=== PATIENT | male | born 1955 | race Caucasian/White ===

== ENCOUNTER 2018-10-25 23:40 | Emergency (ER) | payer BC ==
[~2018-10-25 23:40] MED LIST: Aspirin 81 MG Tab.Chew PO ONE; Sodium Chloride 0.9% 1,000 ML IV SCH
[2018-10-25] MEDS: Nitroglycerin 0.4 MG Tab.SL SL PRN ×2 (23:41→23:45)
[2018-10-26] MEDS ORDERED: Morphine 2 MG/ML Syringe IVPUSH ONE
[2018-10-26] MEDS: Nitroglycerin 0.4 MG Tab.SL SL PRN (00:12)
[2018-10-26] MEDS ORDERED: Morphine 2 MG/ML Syringe ONE (00:42)
[2018-10-26] MEDS ORDERED: Nitroglycerin/D5W 25 MG/250 ML BOTTLE IV SCH (00:49)
--- NOTE | 2018-10-26 01:45 | EDM.PDOC ---
ED HPI GENERAL MEDICAL PROBLEM - General Chief Complaint: Chest Pain Stated Complaint: CHEST PAIN Time Seen by Provider: 10/25/18 23:45 Source of Information: Reports: Patient History Limitations: Reports: No Limitations - History of Present Illness INITIAL COMMENTS - FREE TEXT/NARRATIVE: dictated - Related Data Allergies Allergy/AdvReac Type Severity Reaction Status Date / Time No Known Allergies Allergy Verified 10/26/18 00:57 Home Meds: Home Meds NK [No Known Home Meds] 10/26/18 [History] Past Medical History HEENT History: Reports: Sinusitis, Other (See Below) Other HEENT History: inflammation neck/node Musculoskeletal History: Reports: Other (See Below) Other Musculoskeletal History: torn bicep - Infectious Disease History Infectious Disease History: Reports: Chicken Pox, Mumps ED ROS GENERAL - Review of Systems Constitutional: Reports: No Symptoms HEENT: Reports: No Symptoms Respiratory: Reports: Shortness of Breath Cardiovascular: Reports: Chest Pain Endocrine: Reports: No Symptoms GI/Abdominal: Reports: Nausea : Reports: No Symptoms Musculoskeletal: Reports: Back Pain Skin: Reports: No Symptoms Neurological: Reports: No Symptoms Psychiatric: Reports: No Symptoms Hematologic/Lymphatic: Reports: No Symptoms ED EXAM, GENERAL - Physical Exam Free Text/Narrative:: dictated Exam Limited By: No Limitations General Appearance: Alert, WD/WN, Anxious Course - Orders/Labs/Meds Orders: Active Orders 24 hr Category Date Time Status Chest 1V Frontal [CR] Stat Exams 10/25/18 23:57 Taken Labs: Laboratory Tests 10/25/18 10/25/18 10/25/18 Range/Units 00:00 00:00 00:00 WBC 10.7 (4.0-11.0) K/uL RBC 4.36 L (4.50-6.50) M/uL Hgb 13.8 (13.0-18.0) g/dL Hct 39.6 L (40.0-54.0) % MCV 91 (76-96) fL MCH 31.7 (27.0-32.0) pg MCHC 34.8 (31.0-35.0) g/dL RDW 13.0 (11.0-16.0) % Plt Count 223 (150-400) K/uL MPV 10.5 H (6.0-10.0) fL Neut % (Auto) 40.2 L (45.0-70.0) % Lymph % (Auto) 47.4 H (20.0-40.0) % Calloway % (Auto) 9.3 (3.0-10.0) % Eos % (Auto) 2.8 (1.0-5.0) % Baso % (Auto) 0.3 (0.0-0.5) % Neut # (Auto) 4.30 (2.00-7.50) K/uL Lymph # (Auto) 5.07 H (1.50-4.00) K/uL Calloway # (Auto) 1.00 H (0.20-0.80) K/uL Eos # (Auto) 0.30 (0.04-0.40) K/uL Baso # (Auto) 0.03 (0.02-0.10) K/uL Sodium 142 (136-145) mmol/L Potassium 4.0 (3.5-5.1) mmol/L Chloride 109 H (98-107) mmol/L Carbon Dioxide 20.8 L (21.0-32.0) mmol/L Anion Gap 16.2 H (5.0-15.0) mmol/L BUN 28 H (8-26) mg/dL Creatinine 1.14 (0.70-1.30) mg/dL Est Cr Clr Drug Dosing TNP Estimated GFR (MDRD) > 60 (>60) MLS/MIN BUN/Creatinine Ratio 24.6 (6-25) Glucose 111 H (74-100) mg/dL Calcium 8.0 L (8.5-10.1) mg/dL Total Bilirubin 0.4 (0.0-1.0) mg/dL AST 23 (15-37) U/L ALT 28 (12-78) U/L Alkaline Phosphatase 70 (46-116) U/L Troponin I 0.282 H* (0.000-0.060) ng/mL Total Protein 6.7 (6.4-8.2) g/dL Albumin 3.6 (3.4-5.0) g/dL Globulin 3.1 (2.2-4.2) g/dL Albumin/Globulin Ratio 1.2 (0.8-2.0) Meds: Medications Discontinued Medications Generic Name Dose Route Start Last Admin Trade Name Freq PRN Reason Stop Dose Admin Morphine Sulfate Confirm 10/26/18 00:42 Morphine Administered 10/26/18 00:43 Dose 2 mg .ROUTE .STK-MED ONE Departure - Departure Time of Disposition: 01:35 Disposition: DC/Tfer to Acute Hospital 02 Reason for Transfer *Q: Primary PCI Indicated Condition: Fair Clinical Impression: Acute coronary syndrome Referrals: PCP,None [Primary Care Provider] - Forms: ED Department Discharge, Interfacility Transfer EMTALA - My Orders Last 24 Hours: My Active Orders 10/25/18 23:57 Chest 1V Frontal [CR] Stat - Assessment/Plan Last 24 Hours: My Active Orders 10/25/18 23:57 Chest 1V Frontal [CR] Stat
--- NOTE | 2018-10-26 02:19 | ER ---
REASON FOR EMERGENCY ROOM VISIT: Chest pain. 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 They had been at a free market and just shortly after getting in the vehicle to come home with his , he began to have a severe, rather rapid episode of chest pain. It penetrated through to the back and down the left arm. He did not have any diaphoresis, but he did have some nausea. Chest pain continued to be approximately 10/[address] and on arrival to the emergency department. He does give a history of having had intermittent episodes of chest pain for the past week or so while working outside. He has attributed this to the heat. He describes the pain as dull and achy anteriorly, penetrating through to the back. He typically went inside and rested in the air-conditioning and his pain will promptly resolve. He has never had any prior medical history. By his own admission, he has not seen doctors very much throughout his entire life. PAST MEDICAL HISTORY: Significant for appendectomy, otherwise completely unremarkable. He does not have any history of diabetes, hypertension or hypercholesterolemia. SOCIAL HISTORY: He has been a smoker all his life. He drinks alcohol on occasion. FAMILY HISTORY: Father had a myocardial infarction. His mother had a stroke. He has a sister who is alive and well and a brother who had a cerebral aneurysm. MEDICATIONS: None. ALLERGIES: NONE. PHYSICAL EXAMINATION: He does appear to be comfortable. He prefers to sit up at this time. He is not diaphoretic. His skin is not cool and clammy. He is alert and appropriate. He describes the pain after receiving nitroglycerin and 4 baby aspirin as 6/10. His blood pressure on arrival was in the high 170s over low 100s. Heart rate was 57, O2 sat is 100%, respiratory rate is 20. HEENT: Head is normocephalic. Pupils are equally round and reactive. No conjunctivitis. Oropharynx normal. NECK: Supple. Nontender. No bruits. There is no JVD. CHEST: Clear to auscultation with no wheezes, rhonchi or rales. He does have some tenderness on palpation, some mild tenderness on palpation of the left infrascapular area. CARDIAC: Regular rate without murmur. No rub is heard including with the patient leaning forward. ABDOMEN: Nondistended, soft and nontender. No hepatosplenomegaly. No palpable masses. No pulsatile masses are noted. No right upper quadrant tenderness. EXTREMITIES: He has normal palpable pulses. There is no edema. Good perfusion with good capillary refill is noted. NEUROLOGIC: He moves all 4 extremities and obeys commands. Muscle strength is equal bilaterally. Further emergency room course: As mentioned above, he was given nitroglycerin x2 sublingual and 4 baby aspirin. This only affected transient and partial relief of his chest pain and it started to worsen after a few minutes. He was therefore given a total of 2 doses of 2 mg morphine sulfate IV with significant relief of his pain following that, but he still nonetheless has persistent pain. IV was secured. A 12-lead EKG did not show any ST segment elevations or acute changes. CBC was unremarkable with a white count of 10,700 and hemoglobin of 13.8. CMP showed no elevation of liver enzymes and normal electrolytes. Troponin I was elevated at 0.28, which is a critical elevation. IMPRESSION: 1. Chest pain, rule out acute coronary syndrome. I do not think he is experiencing a STEMI at this point. 2. Other possibilities for his chest pain include pericarditis, aortic dissection and pulmonary embolism. His history to me seems to be most consistent with unstable angina and possible acute coronary syndrome, but the other 3 things need to be ruled out, particularly with his wanting to sit up for some pain relief as well as his back pain, so all these things need to be excluded. I did speak to the repair specialist, Dr. Boothe, in [facility], and after discussing his case, he agreed to take him in transfer. He will be admitted to telemetry and further workup will be undertaken at that time. I felt it was important that he be transferred by air to save time, particularly since he is still having his ongoing chest pain. We therefore arranged for helicopter transport through [facility]. Because of his elevated blood pressure, I did go ahead and start him on a nitroglycerin drip at 5 mcg per minute and this was discussed with Dr. Boothe as well who thought it was a good idea. All of this was explained to the family, the patient's is a registered nurse who works in this emergency room and she understands and agrees. All questions were answered. HENRI/MODL /[id number]
[2018-10-26] MEDS ORDERED: Sodium Chloride 0.9% 1,000 ML IV SCH (10:15)
--- NOTE | 2018-10-26 13:30 | CR ---
DATE OF SERVICE: 10/26/18 CLINICAL DATA: Chest pain. AP PORTABLE CHEST: No priors. The heart size is normal. The lungs are clear. No pneumothorax. No pleural effusions. No evidence of acute intrathoracic disease. [id number] [facility]
== END 2018-10-26 01:16 ==
LOC: LB.ED 23:40
DX: R07.89 Other chest pain (principal); F17.200 Nicotine dependence, unspecified, uncomplicated; Z90.49 Acquired absence of other specified parts of digestive tract
CPT/HCPCS: 36415; 71045; 80053; 84484; 85025; 93005; 96365; 96375; 99285; A9270; J2270; J3490; J7030

== ENCOUNTER 2020-07-30 06:50 | Emergency (ER) | payer BC ==
[2020-07-30] MEDS ORDERED: Lidocaine 1% 10 ML MDV INJECT ONE (07:20)
[2020-07-30] MEDS ORDERED: cefTRIAXone 1 GM Vial IM ONE (07:21)
[2020-07-30] MEDS ORDERED: Amoxicillin/Clavulanate K 875-125 MG Tab ONE (07:22)
--- NOTE | 2020-07-30 11:25 | ER ---
HISTORY OF PRESENT ILLNESS: A 65-year-old male here with complaints of pain involving the right ear in the right side of his throat. This has been ongoing for about a month, but it did not get bad until yesterday. He states yesterday things got worse, more swelling and pain. He has felt some drainage in his throat. He has been applying heat and that seems to help it drain. He tells me that he does not have any problems swallowing, but he is getting to the miserable stage. He denies any problems with shortness of breath, coughing, or choking and states he otherwise has been fairly healthy. He did have a heart attack a couple of years ago. OBJECTIVE: GENERAL APPEARANCE: The patient is awake and alert. No obvious distress. VITAL SIGNS: Reviewed. He is afebrile. Blood pressure 117/84. HEENT: Examining the right side of the patient's face and neck reveals mild swelling involving the area below the ear down into the upper portion of the neck. This area is tender with even light touch. Ear exam, TM is normal. There is no tragal or auricular tenderness. Mastoid bone was nontender with palpation. Oral mucous membranes are moist. There is swelling and redness involving the pharynx on the right side. I can see some drainage and pustules in this area as well. LUNGS: Clear. SKIN: Warm and dry. DIAGNOSIS: Pharyngitis. TREATMENT PLAN: Rocephin 1 g will be given IM. I will also start the patient on Augmentin today. They are to apply warm packs frequently for 10 to 15 minutes every hour or two during the day today and tomorrow they can do it but not quite as often. I also gave the patient the option of doing a CT scan, but he wants to try the antibiotics first, and I feel this is reasonable. They are to monitor symptoms closely. If his condition gets worse at all, he is to come back into the emergency room for further treatment measures that include imaging. If his condition does improve, recheck should be in the clinic within 2 to 3 days. The patient and his have no further questions and agree with the treatment plan. CRS/MODL /[id number]
== END 2020-07-30 07:38 | disposition home or self-care (01) ==
LOC: LB.ED 06:50
DX: J02.9 Acute pharyngitis, unspecified (principal)
CPT/HCPCS: 96372; 99282; A9270-GY; J0696

== ENCOUNTER 2022-06-22 08:38 | Emergency (ER) | payer BC, MEDICARE ==
[2022-06-22] MEDS: Sodium Chloride 0.9% 500 ML IV ONE ×2 (09:05→09:50)
[2022-06-22] MEDS: Ondansetron 4 MG/2 ML SDV IVPUSH ONE (09:06)
[2022-06-22 09:38] LABS: ESTIMATED GFR 95 mL/min (>60); TROPONIN I HIGH SENSITIVITY 6.5 pg/ml (<=60.4)
[2022-06-22 10:36] LABS: CORONAVIRUS COVID-19 NAA NEGATIVE (NEGATIVE)
== END 2022-06-22 11:05 | disposition home or self-care (01) ==
LOC: LB.ED 08:38
DX: H81.10 Benign paroxysmal vertigo, unspecified ear (principal); E78.00 Pure hypercholesterolemia, unspecified; I10 Essential (primary) hypertension; I25.2 Old myocardial infarction; Z79.82 Long term (current) use of aspirin; Z79.899 Other long term (current) drug therapy; Z20.822 Contact with and (suspected) exposure to COVID-19
CPT/HCPCS: 0240U; 36415; 70450; 80053; 82947; 83735; 84484; 85025; 86140; 93005; 93010; 96361; 96374; 99283; 99284-25; A9270-GY; J2405; J7040